=== PATIENT | male | born 1935 | race Caucasian/White ===

== ENCOUNTER 2020-06-12 06:04 | Emergency (ER) | payer MEDICARE, OTHER ==
[2020-06-12] MEDS ORDERED: PERCOCET 5-3251 EACH PO (07:11)
== END 2020-06-12 07:33 | disposition home or self-care (01) ==
LOC: FER 06:04
DX: S52.602A Unspecified fracture of lower end of left ulna, initial encounter for closed fracture (principal); I10 Essential (primary) hypertension; J44.9 Chronic obstructive pulmonary disease, unspecified; Z79.82 Long term (current) use of aspirin; Z79.899 Other long term (current) drug therapy; W00.0XXA Fall on same level due to ice and snow, initial encounter; Y92.410 Unspecified street and highway as the place of occurrence of the external cause
CPT/HCPCS: 73090; 73110; 96372; J1885

== ENCOUNTER 2020-11-01 22:18 | Emergency (ER) | payer MEDICARE, OTHER ==
[~2020-11-01 22:18] MED LIST: PERCOCET 5-3251 EACH PO
[2020-11-02] MEDS ORDERED: AUGMENTIN 875-1 EACH PO (04:31)
[2020-11-02] MEDS ORDERED: VENTOLIN (2.5 MG/3 M INH (04:31)
== END 2020-11-02 04:35 | disposition home or self-care (01) ==
LOC: FER 22:18
DX: S01.01XA Laceration without foreign body of scalp, initial encounter (principal); J32.9 Chronic sinusitis, unspecified; F10.129 Alcohol abuse with intoxication, unspecified; I10 Essential (primary) hypertension; J44.9 Chronic obstructive pulmonary disease, unspecified; Z79.82 Long term (current) use of aspirin; Z79.899 Other long term (current) drug therapy; W10.9XXA Fall (on) (from) unspecified stairs and steps, initial encounter; Z23 Encounter for immunization
CPT/HCPCS: 70450; 90471; 90715; 94640; 94664